=== PATIENT | female | born 1935 | race Caucasian/White ===

== ENCOUNTER 2018-09-26 18:15 | Emergency (ER) | payer MEDICARE, OTHER ==
[~2018-09-26] VITALS: Ht 160 cm; Wt 52.7 kg
[2018-09-26 18:17] VITALS: BP 165/71
--- NOTE | 2018-09-26 18:21 | NUR ---
Bedside SBAR report received from [facility]NC[facility]. Dr. [place] at bedside to evaluate pt.
--- NOTE | 2018-09-26 18:44 | NUR ---
SW back to bedside.
--- NOTE | 2018-09-26 19:09 | NUR ---
Pt left prior to receiving paperwork, very anxious to depart. Pt walked to discharge lobby and left with daughter.
== END 2018-09-26 19:10 | disposition home or self-care (01) ==
LOC: ED 18:51
DX: M79.671 Pain in right foot (principal); M25.561 Pain in right knee; I10 Essential (primary) hypertension
CPT/HCPCS: 99281; 99283

== ENCOUNTER 2018-10-06 07:41 | Inpatient (IN) | payer MEDICARE ==
[~2018-10-06] VITALS: Ht 160 cm; Wt 56.4 kg
[2018-10-06] MEDS ORDERED: HYDROcodone/APAP 5/325 TABLET PO ONE (08:30)
[2018-10-06] MEDS ORDERED: ONDANSETRON ODT 4 MG PO ONE (08:30)
[2018-10-06 08:36] LABS: MEAN CORPUSCULAR HEMOGLOBIN 30.4 pg (27.0-34.8); MEAN CORPUSCULAR HGB CONC 33.3 g/dL (32.4-35.8); MEAN CORPUSCULAR VOLUME 91.2 fL (80-100); MEAN PLATELET VOLUME 8.2 fL (7.4-10.4); PLATELET COUNT 249 x10^3/uL (130-400); RED BLOOD COUNT 4.97 x10^6/uL (3.82-5.3); RED CELL DISTRIBUTION WIDTH 14.9 % (9.6-15.2)
[2018-10-06 08:46] LABS: ANION GAP 7 mmol/L (5-15); CHLORIDE 103 mmol/L (98-107); CREATININE 1.06 mg/dL (0.55-1.02)
[2018-10-06 08:52] LABS: BASOPHILS # (AUTO) 0.05 x10^3/uL (0-0.1); BASOPHILS % (AUTO) 0 % (0-1); EOSINOPHILS % (AUTO) 0 % (1-7); LYMPHOCYTES % (AUTO) 6 % (22-44); MD SCAN; MONOCYTES # (AUTO) 1.47 x10^3/uL (0.2-0.8); MONOCYTES % (AUTO) 10 % (2-9); NEUTROPHILS % (AUTO) 84 % (42-75)
--- NOTE | 2018-10-06 08:56 | NUR ---
PT UP TO COMMODE, UNSTEADY GAIT AND VERY WEAK D/T PAIN. PT TO XRAY
--- NOTE | 2018-10-06 09:02 | NUR ---
PT REFUSING MEDICATIONS UNTIL SHE CAN HAVE FOOD, DOES NOT LIKE PILLS ON EMPTY STOMACH
--- NOTE | 2018-10-06 09:47 | NUR ---
PT RESTING IN [place], FAMILY REQUESTING FOOD, EDUCATED ON NEED TO WAIT UNTIL SEEN BY MD, PT AND FAMILY IN AGREEMENT. PT UP FOR RECHECK
[2018-10-06] MEDS ORDERED: LIDOCAINE-MPF 1%, 5ML ONE ×2 (10:03→10:11)
[2018-10-06 10:29] LABS: FREE T4 (FREE THYROXINE) 1.14 ng/dL (0.76-1.46); THYROID STIMULATING HORMONE 2.13 mIU/L (0.358-3.740)
--- NOTE | 2018-10-06 10:45 | NUR ---
AND PA AT BEDSIDE FOR KNEE ASPIRATION, AWAITING LAB RESULTS
[2018-10-06] MEDS ORDERED: LIDOCAINE-MPF 1%, 5ML INFIL ONE (11:00)
--- NOTE | 2018-10-06 12:12 | NUR ---
PT RESTING ON BED, DENIES ANY NSG NEEDS AT THIS TIME
[2018-10-06 12:16] LABS: HCT (SEDRATE) 45.4 % (34.6-47.8)
[2018-10-06] MEDS ORDERED: KETOROLAC 30 MG/1 ML IM ONE (13:00)
[2018-10-06] MEDS ORDERED: ONDANSETRON ODT 4 MG ONE (13:28)
[2018-10-06] MEDS ORDERED: KETOROLAC 30 MG/1 ML ONE (13:29)
[2018-10-06] MEDS ORDERED: HYDROcodone/APAP 5/325 TABLET ONE (13:29)
[2018-10-06] MEDS ORDERED: AMPICILLIN/SULBACTAM 3 GM in SODIUM CHLORIDE 0.9% 100 ML IV ONE (15:00)
[2018-10-06] MEDS ORDERED: MONT5TAB6 PO (15:09)
[2018-10-06] MEDS ORDERED: COLC0.6T37 PO (15:09)
[2018-10-06] MEDS ORDERED: ALEN70TA3 PO (15:09)
[2018-10-06] MEDS ORDERED: THYROID PILL PO (15:09)
[2018-10-06] MEDS ORDERED: AMLO-150 PO (15:09)
--- NOTE | 2018-10-06 15:15 | NUR ---
REPORT GIVEN TO CONSTAN[place] PT TRANSFERRED TO FLOOR, [place]ARRION WITH ADMITTING IN RM UPON TX OBTAINING WILL TRANSFER WHEN DONE
[2018-10-06] MEDS ORDERED: SODIUM CHLORIDE 0.9%, 500ML IVBOLUS ONE (15:30)
[2018-10-06] MEDS ORDERED: VANCOMYCIN PER PHARMACY MC PRN (15:30)
[2018-10-06] MEDS ORDERED: COLCHICINE 0.6 MG TABLET PO ONE ×2 (15:30→17:00)
[2018-10-06] MEDS ORDERED: KETOROLAC 30 MG/1 ML IV PRN (16:00)
[2018-10-06] MEDS ORDERED: ONDANSETRON ODT 4 MG PO PRN (16:00)
[2018-10-06] MEDS ORDERED: PHARMACOKINETIC MONITORING MC PRN (16:00)
[2018-10-06] MEDS ORDERED: POLYETHYLENE GLYCOL 17 GM PACKET PO PRN (16:00)
[2018-10-06] MEDS ORDERED: PHARMACY MAY ADJ FOR RENAL FX MC PRN (16:00)
[2018-10-06] MEDS ORDERED: VANCOMYCIN PMX 1GM/200ML 200 ML IV ONE (16:00)
[2018-10-06] MEDS ORDERED: hydrALAzine 20 MG/ML, 1ML IVPush PRN (16:00)
[2018-10-06] MEDS ORDERED: ONDANSETRON 2MG/ML, 2ML IVPush PRN (16:00)
[2018-10-06] MEDS: GABAPENTIN 300 MG CAPSULE PO PRN (16:19)
[2018-10-06] MEDS: ACETAMINOPHEN 325 MG TABLET PO PRN (16:19)
[2018-10-06] MEDS: AMPICILLIN/SULBACTAM 3 GM in SODIUM CHLORIDE 0.9% 100 ML IV SCH ×2 (17:15→23:55)
[2018-10-06] MEDS: SODIUM CHLORIDE 0.9% 1,000 ML IV SCH (17:15)
[2018-10-06] MEDS ORDERED: LEVO88TA2 PO (18:40)
[2018-10-06] MEDS: VANCOMYCIN PMX 1GM/200ML 200 ML IV SCH (20:14)
[2018-10-06 21:00] VITALS: BP 115/61
[2018-10-07 02:37] VITALS: BP 116/63
[2018-10-07] MEDS: SODIUM CHLORIDE 0.9% 1,000 ML IV SCH ×2 (03:55→15:10)
[2018-10-07] MEDS: GABAPENTIN 300 MG CAPSULE PO PRN (04:23)
[2018-10-07] MEDS: ACETAMINOPHEN 325 MG TABLET PO PRN (04:23)
[2018-10-07 06:16] LABS: ALANINE AMINOTRANSFERASE 14 U/L (12-78); ALBUMIN 2.6 g/dL (3.4-5.0); ANION GAP 8 mmol/L (5-15); CALCIUM 9.2 mg/dL (8.5-10.1); CHLORIDE 108 mmol/L (98-107); CREATININE 0.81 mg/dL (0.55-1.02)
[2018-10-07 06:19] LABS: ALKALINE PHOSPHATASE 85 U/L (45-117); BILIRUBIN,TOTAL 0.6 mg/dL (0.2-1.0); TOTAL PROTEIN 6.3 g/dL (6.4-8.2)
[2018-10-07 06:21] LABS: MEAN CORPUSCULAR HGB CONC 33.8 g/dL (32.4-35.8); MEAN CORPUSCULAR VOLUME 91.8 fL (80-100); MEAN PLATELET VOLUME 8.7 fL (7.4-10.4); PLATELET COUNT 204 x10^3/uL (130-400); RED BLOOD COUNT 4.27 x10^6/uL (3.82-5.3); RED CELL DISTRIBUTION WIDTH 14.9 % (9.6-15.2)
[2018-10-07 06:40] LABS: BASOPHILS # (AUTO) 0.05 x10^3/uL (0-0.1); BASOPHILS % (AUTO) 0 % (0-1); EOSINOPHILS % (AUTO) 1 % (1-7); LYMPHOCYTES % (AUTO) 10 % (22-44); MD SCAN; MONOCYTES % (AUTO) 7 % (2-9); NEUTROPHILS # (AUTO) 10.14 x10^3/uL (1.8-6.8); NEUTROPHILS % (AUTO) 81 % (42-75)
[2018-10-07] MEDS: AMPICILLIN/SULBACTAM 3 GM in SODIUM CHLORIDE 0.9% 100 ML IV SCH ×2 (09:02→16:33)
[2018-10-07] MEDS: COLCHICINE 0.6 MG TABLET PO SCH (09:02)
[2018-10-07] MEDS: SENNA/DOCUSATE TABLET PO SCH (09:02)
[2018-10-07] MEDS ORDERED: POTASSIUM CHLORIDE 20 MEQ TAB.ER.PRT PO ONE (09:30)
[2018-10-07 09:54] VITALS: BP 107/70
[2018-10-07 13:25] VITALS: BP 132/69
[2018-10-07 17:28] LABS: CULTURE INDICATED? YES; MICROSCOPIC INDICATED
[2018-10-07 19:15] VITALS: BP 128/66
[2018-10-07] MEDS: VANCOMYCIN PMX 1GM/200ML 200 ML IV SCH (19:36)
[2018-10-08] MEDS: AMPICILLIN/SULBACTAM 3 GM in SODIUM CHLORIDE 0.9% 100 ML IV SCH ×3 (00:36→19:46)
[2018-10-08] MEDS: ACETAMINOPHEN 325 MG TABLET PO PRN (02:29)
[2018-10-08 05:47] LABS: BASOPHILS # (AUTO) 0.02 x10^3/uL (0-0.1); BASOPHILS % (AUTO) 0 % (0-1); EOSINOPHILS # (AUTO) 0.16 x10^3/uL (0-0.4); EOSINOPHILS % (AUTO) 2 % (1-7); LYMPHOCYTES # (AUTO) 1.31 x10^3/uL (1-3.4); LYMPHOCYTES % (AUTO) 13 % (22-44); MD NO; MEAN CORPUSCULAR VOLUME 91.2 fL (80-100); MEAN PLATELET VOLUME 8.4 fL (7.4-10.4); MONOCYTES # (AUTO) 0.94 x10^3/uL (0.2-0.8); MONOCYTES % (AUTO) 9 % (2-9); NEUTROPHILS % (AUTO) 77 % (42-75); PLATELET COUNT 243 x10^3/uL (130-400); RED BLOOD COUNT 4.14 x10^6/uL (3.82-5.3); RED CELL DISTRIBUTION WIDTH 14.8 % (9.6-15.2)
[2018-10-08 06:02] LABS: ANION GAP 7 mmol/L (5-15); CALCIUM 9.5 mg/dL (8.5-10.1); CHLORIDE 112 mmol/L (98-107)
[2018-10-08 06:05] LABS: CREATININE 0.75 mg/dL (0.55-1.02)
[2018-10-08] MEDS: SENNA/DOCUSATE TABLET PO SCH (07:24)
[2018-10-08 07:39] VITALS: BP 122/75
[2018-10-08] MEDS: COLCHICINE 0.6 MG TABLET PO SCH (09:03)
[2018-10-08] MEDS: SODIUM CHLORIDE 0.9% 1,000 ML IV SCH (09:15)
[2018-10-08 16:01] VITALS: BP 132/83
[2018-10-08] MEDS: VANCOMYCIN PMX 1GM/200ML 200 ML IV SCH (20:41)
[2018-10-08 23:18] VITALS: BP 167/80
[2018-10-09 03:13] VITALS: BP 149/87
[2018-10-09] MEDS: AMPICILLIN/SULBACTAM 3 GM in SODIUM CHLORIDE 0.9% 100 ML IV SCH ×2 (03:15→11:32)
[2018-10-09 05:56] LABS: CHLORIDE 110 mmol/L (98-107)
[2018-10-09 06:01] LABS: BASOPHILS # (AUTO) 0.03 x10^3/uL (0-0.1); BASOPHILS % (AUTO) 0 % (0-1); EOSINOPHILS # (AUTO) 0.13 x10^3/uL (0-0.4); EOSINOPHILS % (AUTO) 2 % (1-7); LYMPHOCYTES # (AUTO) 1.52 x10^3/uL (1-3.4); LYMPHOCYTES % (AUTO) 24 % (22-44); MD NO; MEAN CORPUSCULAR HEMOGLOBIN 30.8 pg (27.0-34.8); MEAN CORPUSCULAR HGB CONC 33.8 g/dL (32.4-35.8); MEAN CORPUSCULAR VOLUME 91.2 fL (80-100); MEAN PLATELET VOLUME 7.7 fL (7.4-10.4); MONOCYTES # (AUTO) 0.64 x10^3/uL (0.2-0.8); MONOCYTES % (AUTO) 10 % (2-9); NEUTROPHILS % (AUTO) 64 % (42-75); PLATELET COUNT 266 x10^3/uL (130-400); RED BLOOD COUNT 4.52 x10^6/uL (3.82-5.3); RED CELL DISTRIBUTION WIDTH 14.9 % (9.6-15.2)
[2018-10-09 06:18] LABS: ALANINE AMINOTRANSFERASE 28 U/L (12-78); ALBUMIN 2.7 g/dL (3.4-5.0); ALKALINE PHOSPHATASE 87 U/L (45-117); ANION GAP 7 mmol/L (5-15); BILIRUBIN,TOTAL 0.5 mg/dL (0.2-1.0); CALCIUM 9.8 mg/dL (8.5-10.1); CREATININE 0.76 mg/dL (0.55-1.02); TOTAL PROTEIN 6.5 g/dL (6.4-8.2)
[2018-10-09] MEDS ORDERED: POTASSIUM CHLORIDE 20 MEQ TAB.ER.PRT PO ONE (07:00)
[2018-10-09 07:41] VITALS: BP 169/84
[2018-10-09] MEDS: COLCHICINE 0.6 MG TABLET PO SCH (07:44)
[2018-10-09] MEDS: SENNA/DOCUSATE TABLET PO SCH (07:45)
[2018-10-09 12:46] VITALS: BP 178/92
[2018-10-09 20:30] VITALS: BP 144/74
[2018-10-10 01:31] VITALS: BP 115/61
[2018-10-10 07:32] LABS: ALANINE AMINOTRANSFERASE 29 U/L (12-78); ALBUMIN 2.8 g/dL (3.4-5.0); ANION GAP 5 mmol/L (5-15); CALCIUM 9.9 mg/dL (8.5-10.1); CHLORIDE 108 mmol/L (98-107); CREATININE 0.83 mg/dL (0.55-1.02)
[2018-10-10 07:34] LABS: ALKALINE PHOSPHATASE 87 U/L (45-117); BILIRUBIN,TOTAL 0.3 mg/dL (0.2-1.0); TOTAL PROTEIN 6.5 g/dL (6.4-8.2)
[2018-10-10 08:28] VITALS: BP 164/90
[2018-10-10] MEDS: AMLODIPINE 5 MG TABLET PO SCH (08:33)
[2018-10-10] MEDS: COLCHICINE 0.6 MG TABLET PO SCH (08:33)
[2018-10-10] MEDS: SENNA/DOCUSATE TABLET PO SCH (08:33)
[2018-10-10] MEDS ORDERED: ESTR42.58 VG (14:33)
[2018-10-10 14:34] VITALS: BP 134/70
[2018-10-10] MEDS ORDERED: [UNRECOGNIZED DRUG - REMARK] MC SCH (16:30)
[2018-10-10 20:26] VITALS: BP 139/76
[2018-10-11 00:59] VITALS: BP 167/79
[2018-10-11 07:52] VITALS: BP 135/71
[2018-10-11] MEDS: SENNA/DOCUSATE TABLET PO SCH (08:58)
[2018-10-11] MEDS: COLCHICINE 0.6 MG TABLET PO SCH (08:58)
[2018-10-11] MEDS: AMLODIPINE 5 MG TABLET PO SCH (08:58)
[2018-10-11 13:11] VITALS: BP 138/71
[2018-10-11 21:17] VITALS: BP 148/74
[2018-10-12 00:59] VITALS: BP 152/73
[2018-10-12] MEDS: ACETAMINOPHEN 325 MG TABLET PO PRN (00:59)
[2018-10-12 08:16] VITALS: BP 157/76
[2018-10-12] MEDS ORDERED: COLCHICINE 0.6 MG TABLET PO SCH (09:00)
[2018-10-12] MEDS: SENNA/DOCUSATE TABLET PO SCH (09:00)
[2018-10-12] MEDS: AMLODIPINE 5 MG TABLET PO SCH (09:06)
[2018-10-12] MEDS ORDERED: COLC0.6T37 PO (12:04)
[2018-10-12 13:15] VITALS: BP 128/67
[2018-10-13] MEDS ORDERED: ALENDRONATE 70 MG TABLET HOMEMEDPO SCH (06:30)
== END 2018-10-12 14:23 | DRG 871 ==
LOC: ED 08:10 → EDIP 14:04 → 4NOR 15:38
PROVIDERS: ADMIT Internal Medicine; ATTEND Internal Medicine
PROC: 0S9D3ZZ Drainage of Left Knee Joint, Percutaneous Approach (ICD-10-PCS; principal; 2018-10-06)
DX: A41.9 Sepsis, unspecified organism (principal); E43 Unspecified severe protein-calorie malnutrition; M00.9 Pyogenic arthritis, unspecified; M11.262 Other chondrocalcinosis, left knee; M25.462 Effusion, left knee; B02.9 Zoster without complications; E03.9 Hypothyroidism, unspecified; E21.3 Hyperparathyroidism, unspecified; E83.119 Hemochromatosis, unspecified; I10 Essential (primary) hypertension; K59.00 Constipation, unspecified; M17.12 Unilateral primary osteoarthritis, left knee; N28.9 Disorder of kidney and ureter, unspecified; Z66 Do not resuscitate; Z80.0 Family history of malignant neoplasm of digestive organs; Z87.11 Personal history of peptic ulcer disease; Z91.14 Patient's other noncompliance with medication regimen; Z88.1 Allergy status to other antibiotic agents; Z88.5 Allergy status to narcotic agent; Z90.49 Acquired absence of other specified parts of digestive tract
CPT/HCPCS: 36415; 80048; 80053; 80202; 81001; 82040; 82330; 82945; 83605; 83615; 84145; 84157; 84439; 84443; 84550; 84560; 85025; 85651; 85810; 86140; 87040; 87070; 87086; 87205; 89050; 89060; 96372; 99285; G0378; J0295; J1885; J3370; Q0162; J0360; J7030; J7040

== ENCOUNTER 2020-10-20 13:00 | Emergency (ER) | payer MEDICARE ==
[~2020-10-20] VITALS: Ht 160 cm; Wt 54.5 kg
[~2020-10-20 13:00] MED LIST: ALEN70TA3 PO; AMLO-150 PO; COLC0.6T37 PO; ESTR42.58 VG; LEVO88TA2 PO; MONT5TAB6 PO; THYROID PILL PO
[2020-10-20] MEDS ORDERED: SULFAMETH./TRIMETHOPRIM DS 800MG/160MG TABLET PO ONE (14:30)
[2020-10-20] MEDS ORDERED: NAPROXEN 500 MG TABLET PO ONE (14:30)
[2020-10-20] MEDS ORDERED: NAPROXEN 500 MG TABLET ONE (14:46)
[2020-10-20] MEDS ORDERED: SULFAMETH./TRIMETHOPRIM DS 800MG/160MG TABLET ONE (14:46)
--- NOTE | 2020-10-20 14:47 | NUR ---
PT GOING TO CT
--- NOTE | 2020-10-20 15:04 | NUR ---
CUSTOMER RESPONSE REPRESENTATIVE PER AUG. DAUGHTER AT BEDSIDE.
[2020-10-20 15:28] VITALS: BP 148/59
[2020-10-20 15:35] LABS: BASOPHILS % (AUTO) 1 % (0-1); EOSINOPHILS % (AUTO) 2 % (1-7); LYMPHOCYTES % (AUTO) 23 % (22-44); MEAN CORPUSCULAR HEMOGLOBIN 32.1 pg (27.0-34.8); MEAN CORPUSCULAR HGB CONC 33.5 g/dL (32.4-35.8); MEAN PLATELET VOLUME 8.1 fL (7.4-10.4); MONOCYTES % (AUTO) 8 % (2-9); NEUTROPHILS % (AUTO) 66 % (42-75); PLATELET COUNT 180 x10^3/uL (130-400); RED BLOOD COUNT 4.73 x10^6/uL (3.82-5.3); RED CELL DISTRIBUTION WIDTH 14.1 % (9.6-15.2)
[2020-10-20 15:38] LABS: MD NO
[2020-10-20 15:39] LABS: ALBUMIN 3.8 g/dL (3.4-5.0); ANION GAP 3 mmol/L (5-15); CHLORIDE 109 mmol/L (98-107); CREATININE 0.97 mg/dL (0.55-1.02)
--- NOTE | 2020-10-20 16:33 | NUR ---
ERMD AT BEDSIDE TO UPDATE PT AND DAUGHTER ON POC.
== END 2020-10-20 16:57 | disposition home or self-care (01) ==
LOC: ED 15:49
DX: M19.072 Primary osteoarthritis, left ankle and foot (principal); M79.672 Pain in left foot; Z88.8 Allergy status to other drugs, medicaments and biological substances
CPT/HCPCS: 36415; 80048; 82040; 83605; 85025; 87040; 99284